=== PATIENT | male | born 1945 | race Two or more races ===

== ENCOUNTER 2020-08-13 06:42 | Inpatient (IN) | payer OTHER, MEDICAID ==
[~2020-08-13] VITALS: Ht 172.7 cm; Wt 99.8 kg
[2020-08-13] MEDS ORDERED: ASPirin 81 mg TAB PO ONE (07:00)
[2020-08-13] MEDS ORDERED: dilTIAZem 25 MG/5 ML VIAL IV ONE (07:00)
[2020-08-13 07:24] LABS: Basophils # (auto) 0.1 10 ^3/uL (0-0.2); Basophils % (auto) 0.4 % (0.0-2.0); Eosinophils # (auto) 0 10 ^3/uL (0-0.8); Hematocrit 48.7 % (41.0-53.0); Hemoglobin 16.5 g/dL (13.5-17.5); Lymphocytes % (auto) 8.2 % (10.0-50.0); Mean Corpuscular Hemoglobin 31.9 pg (28.0-32.0); Mean Corpuscular Hgb Conc. 33.8 g/dL (32.0-36.0); Mean Corpuscular Volume 94.2 fL (80.0-100.0); Monocytes # (auto) 1.1 10 ^3/uL (0-1.3); Monocytes % (auto) 8.4 % (0.0-12.0); Neutrophils # (auto) 10.6 10 ^3/uL (1.6-8.6); Nucleated Red Blood Cells % 0.1 %; Platelet Count (auto) 211 10^3/uL (140-450); Red Blood Cells 5.17 10^6/uL (4.5-5.90); Red Cell Distribution Width 14.9 % (11.8-14.3); White Blood Cell 12.8 10^3/uL (4.4-10.8)
[2020-08-13 07:39] LABS: Chloride 108 mmol/L (98-107); INR 1.14 (0.9-1.15); Partial Thromboplastin Time 29.6 sec (23.0-31.2); Potassium 3.6 mmol/L (3.5-5.1); Sodium 140 mmol/L (136-145)
[2020-08-13 07:48] LABS: Alanine Aminotransferase 37 U/L (16-61); Albumin 2.6 g/dL (3.4-5.0); Alkaline Phosphatase 168 U/L (45-117); Anion Gap 10 (5-15); Aspartate Aminotransferase 43 U/L (15-37); BUN/Creatinine Ratio 10.3; Bilirubin, Total 0.5 mg/dL (0.2-1.0); Blood Urea Nitrogen 12 mg/dL (7-18); Calcium 8.3 mg/dL (8.5-10.1); Carbon Dioxide 22 mmol/L (21-32); GFR African American 79 mL/min; GFR Non-African American 66 mL/min; Glucose 196 mg/dL (74-106); Total Protein 7.6 g/dL (6.4-8.2)
[2020-08-13] MEDS ORDERED: MORPHINE SULF INJ 2 MG/ML SYRINGE 1ML IV PRN ×2 (14:00)
[2020-08-13] MEDS ORDERED: HYDROcodone-ACET 5/325MG TAB PO PRN (14:00)
[2020-08-13] MEDS ORDERED: ONDANSETRON HCL 4 MG/2 ML VIAL IV PRN (14:00)
[2020-08-13] MEDS ORDERED: NITROGLYCERIN 0.4 MG SL TAB SL PRN (14:00)
[2020-08-13] MEDS ORDERED: ACETAMINOPHEN 500 MG TAB PO PRN (14:00)
[2020-08-13] MEDS ORDERED: hydrALAZINE HCL 20 MG/ML VL IV PRN (14:00)
[2020-08-13] MEDS: METOPROLOL TARTRATE 50 MG TAB PO SCH ×2 (14:31→22:10)
[2020-08-13] MEDS ORDERED: SODIUM CHLORIDE 0.9% 1,000 ML IV SCH (14:45)
[2020-08-13 16:00] LABS: CRP High Sensitivity 0.35 mg/dL (< 0.3)
[2020-08-13] MEDS ORDERED: ASPI-498 PO (16:48)
[2020-08-13] MEDS ORDERED: DONE1TAB88 PO (16:48)
[2020-08-13] MEDS ORDERED: SERT-375 PO (16:48)
[2020-08-13] MEDS ORDERED: TRAZ-181 PO (16:56)
[2020-08-13] MEDS ORDERED: NICO21DI TD (16:58)
[2020-08-13] MEDS ORDERED: NICO14DI9 TD (17:05)
[2020-08-13] MEDS: QUEtiapine FUMARATE 25 MG TAB PO SCH (21:51)
[2020-08-13] MEDS: traZODone HCL 50 MG TAB PO SCH (21:51)
[2020-08-13] MEDS: DOCUSATE SOD 100 MG CAP PO SCH (21:51)
[2020-08-13] MEDS: DONEPEZIL HYDROCHLORIDE 5 MG TAB PO SCH (21:51)
[2020-08-14 05:00] VITALS: BP 109/69
[2020-08-14 08:46] VITALS: BP 141/88
[2020-08-14 09:31] LABS: Basophils # (auto) 0.1 10 ^3/uL (0-0.2); Basophils % (auto) 1.3 % (0.0-2.0); Eosinophils # (auto) 0.1 10 ^3/uL (0-0.8); Eosinophils % (auto) 1.1 % (0.0-7.0); Hematocrit 41.9 % (41.0-53.0); Lymphocytes # (auto) 3.1 10 ^3/uL (0.4-5.4); Lymphocytes % (auto) 28.1 % (10.0-50.0); Mean Corpuscular Hemoglobin 31.8 pg (28.0-32.0); Mean Corpuscular Hgb Conc. 33.5 g/dL (32.0-36.0); Mean Corpuscular Volume 94.9 fL (80.0-100.0); Monocytes # (auto) 1.1 10 ^3/uL (0-1.3); Monocytes % (auto) 9.9 % (0.0-12.0); Neutrophils # (auto) 6.6 10 ^3/uL (1.6-8.6); Neutrophils % (auto) 59.6 % (37.0-80.0); Nucleated Red Blood Cells % 0.1 %; Platelet Count (auto) 165 10^3/uL (140-450); Red Blood Cells 4.41 10^6/uL (4.5-5.90)
[2020-08-14 09:50] LABS: Calcium 7.6 mg/dL (8.5-10.1); Potassium 3.8 mmol/L (3.5-5.1)
[2020-08-14] MEDS ORDERED: FAMOTIDINE 20 MG TAB PO SCH (10:00)
[2020-08-14 10:08] LABS: INR 1.16 (0.9-1.15)
[2020-08-14] MEDS: levoFLOXacin 500MG 100 ML IV SCH (10:09)
[2020-08-14] MEDS: DOCUSATE SOD 100 MG CAP PO SCH ×2 (10:10→22:00)
[2020-08-14] MEDS: ASPirin-EC 81 mg tab PO SCH (10:10)
[2020-08-14] MEDS: METOPROLOL TARTRATE 50 MG TAB PO SCH ×2 (10:11→22:30)
[2020-08-14] MEDS: LISINOPRIL 10 MG TAB PO SCH (10:12)
[2020-08-14 10:22] LABS: Urine Bacteria NONE SEEN /hpf (None Seen); Urine Blood Negative /uL (Negative); Urine Specific Gravity 1.013 (1.001-1.035); Urine WBC <1 /hpf (0 - 3)
[2020-08-14 13:00] VITALS: BP 138/72
[2020-08-14 16:31] VITALS: BP 139/72
[2020-08-14 22:00] VITALS: BP 131/78
[2020-08-14] MEDS: QUEtiapine FUMARATE 25 MG TAB PO SCH (22:30)
[2020-08-14] MEDS: traZODone HCL 50 MG TAB PO SCH (22:30)
[2020-08-14] MEDS: DONEPEZIL HYDROCHLORIDE 5 MG TAB PO SCH (22:30)
[2020-08-15] VITALS (9 sets, daily range): BP systolic 86–116; BP diastolic 37–65
[2020-08-15 06:48] LABS: Basophils # (auto) 0.1 10 ^3/uL (0-0.2); Basophils % (auto) 0.7 % (0.0-2.0); Eosinophils # (auto) 0.2 10 ^3/uL (0-0.8); Eosinophils % (auto) 2.3 % (0.0-7.0); Hematocrit 43.2 % (41.0-53.0); Hemoglobin 14.8 g/dL (13.5-17.5); Lymphocytes # (auto) 2.9 10 ^3/uL (0.4-5.4); Lymphocytes % (auto) 30.3 % (10.0-50.0); Mean Corpuscular Hemoglobin 32.5 pg (28.0-32.0); Mean Corpuscular Hgb Conc. 34.4 g/dL (32.0-36.0); Mean Corpuscular Volume 94.5 fL (80.0-100.0); Monocytes % (auto) 9.9 % (0.0-12.0); Neutrophils # (auto) 5.5 10 ^3/uL (1.6-8.6); Neutrophils % (auto) 56.8 % (37.0-80.0); Platelet Count (auto) 174 10^3/uL (140-450); Red Blood Cells 4.57 10^6/uL (4.5-5.90); Red Cell Distribution Width 14.9 % (11.8-14.3); White Blood Cell 9.7 10^3/uL (4.4-10.8)
[2020-08-15 07:06] LABS: Potassium 3.7 mmol/L (3.5-5.1)
[2020-08-15 07:18] LABS: Albumin 2.3 g/dL (3.4-5.0); BUN/Creatinine Ratio 12.7; Calcium 7.9 mg/dL (8.5-10.1); Total Protein 6.3 g/dL (6.4-8.2)
[2020-08-15] MEDS ORDERED: ADENOSINE 107 MG in GIVE UN-DILUTED 0 ML IV STA (08:47)
[2020-08-15] MEDS ORDERED: ADENOSINE 82 MG in GIVE UN-DILUTED 0 ML IV ONE (09:45)
[2020-08-15] MEDS: METOPROLOL TARTRATE 50 MG TAB PO SCH ×2 (10:00→21:43)
[2020-08-15] MEDS ORDERED: POTASSIUM CHL 20 Meq TABLET PO ONE (10:00)
[2020-08-15] MEDS: MAGNESIUM OXIDE 400 MG TAB PO SCH ×2 (11:36→21:43)
[2020-08-15] MEDS: DOCUSATE SOD 100 MG CAP PO SCH ×2 (11:36→21:43)
[2020-08-15] MEDS: levoFLOXacin 500MG 100 ML IV SCH (11:36)
[2020-08-15] MEDS: ASPirin-EC 81 mg tab PO SCH (11:37)
[2020-08-15] MEDS: FAMOTIDINE 20 MG TAB PO SCH (11:37)
[2020-08-15] MEDS: LISINOPRIL 10 MG TAB PO SCH (11:38)
[2020-08-15] MEDS ORDERED: SODIUM CHLORIDE 0.9% 250 ML IV ONE (14:45)
[2020-08-15] MEDS: Ensure HIGH Protein Chocolate 8oz Bottle PO SCH (18:39)
[2020-08-15] MEDS ORDERED: LORazepam 2MG/ML-1ML VIAL IV PRN (20:30)
[2020-08-15] MEDS: DONEPEZIL HYDROCHLORIDE 5 MG TAB PO SCH (21:42)
[2020-08-15] MEDS: traZODone HCL 50 MG TAB PO SCH (21:42)
[2020-08-15] MEDS: QUEtiapine FUMARATE 25 MG TAB PO SCH (21:43)
[2020-08-16 04:51] VITALS: BP 99/59
[2020-08-16 05:30] LABS: Basophils # (auto) 0.1 10 ^3/uL (0-0.2); Basophils % (auto) 1.2 % (0.0-2.0); Eosinophils # (auto) 0.2 10 ^3/uL (0-0.8); Eosinophils % (auto) 1.7 % (0.0-7.0); Hematocrit 40.9 % (41.0-53.0); Hemoglobin 14.1 g/dL (13.5-17.5); Lymphocytes # (auto) 2.2 10 ^3/uL (0.4-5.4); Lymphocytes % (auto) 24.1 % (10.0-50.0); Mean Corpuscular Hemoglobin 32.4 pg (28.0-32.0); Mean Corpuscular Hgb Conc. 34.3 g/dL (32.0-36.0); Mean Corpuscular Volume 94.5 fL (80.0-100.0); Monocytes # (auto) 1.2 10 ^3/uL (0-1.3); Monocytes % (auto) 12.6 % (0.0-12.0); Neutrophils # (auto) 5.6 10 ^3/uL (1.6-8.6); Neutrophils % (auto) 60.4 % (37.0-80.0); Nucleated Red Blood Cells % 0.1 %; Platelet Count (auto) 176 10^3/uL (140-450); Red Blood Cells 4.33 10^6/uL (4.5-5.90); Red Cell Distribution Width 14.8 % (11.8-14.3); White Blood Cell 9.2 10^3/uL (4.4-10.8)
[2020-08-16 06:51] LABS: Potassium 4.1 mmol/L (3.5-5.1)
[2020-08-16 07:00] LABS: Albumin 2.1 g/dL (3.4-5.0); BUN/Creatinine Ratio 16.5; Calcium 8.1 mg/dL (8.5-10.1)
[2020-08-16 07:03] LABS: Bilirubin, Total 0.9 mg/dL (0.2-1.0); Total Protein 5.8 g/dL (6.4-8.2)
[2020-08-16] MEDS: Ensure HIGH Protein Chocolate 8oz Bottle PO SCH ×3 (08:00→18:00)
[2020-08-16 09:00] VITALS: BP 124/63
[2020-08-16] MEDS: DOCUSATE SOD 100 MG CAP PO SCH (10:00)
[2020-08-16] MEDS: levoFLOXacin 500MG 100 ML IV SCH (10:36)
[2020-08-16] MEDS: FAMOTIDINE 20 MG TAB PO SCH (10:36)
[2020-08-16] MEDS: MAGNESIUM OXIDE 400 MG TAB PO SCH (10:36)
[2020-08-16] MEDS: METOPROLOL TARTRATE 50 MG TAB PO SCH (10:36)
[2020-08-16] MEDS: ASPirin-EC 81 mg tab PO SCH (10:36)
[2020-08-16] MEDS: LISINOPRIL 10 MG TAB PO SCH (10:37)
[2020-08-16 12:36] VITALS: BP 96/46
[2020-08-16 16:54] VITALS: BP 103/62
[2020-08-18 09:18] LABS: Folate (Folic Acid) 11.05 ng/mL (5.38-24)
== END 2020-08-16 21:30 | disposition short-term general hospital (02) | DRG 64 ==
LOC: EDSEX 06:42 → EDBD 06:42 → ER 06:42 → TELE 06:43 → TELE-CENTR 08-14 03:10
PROVIDERS: ADMIT Nurse Practitioner Acute Care; ATTEND Internal Medicine
DX: I61.9 Nontraumatic intracerebral hemorrhage, unspecified (principal); N17.0 Acute kidney failure with tubular necrosis; J44.1 Chronic obstructive pulmonary disease with (acute) exacerbation; I47.1 Supraventricular tachycardia; R65.10 Systemic inflammatory response syndrome (SIRS) of non-infectious origin without acute organ dysfunction; E44.0 Moderate protein-calorie malnutrition; D68.59 Other primary thrombophilia; I48.92 Unspecified atrial flutter; I67.1 Cerebral aneurysm, nonruptured; F03.90 Unspecified dementia, unspecified severity, without behavioral disturbance, psychotic disturbance, mood disturbance, and anxiety; I48.0 Paroxysmal atrial fibrillation; E83.51 Hypocalcemia; F17.210 Nicotine dependence, cigarettes, uncomplicated; E11.22 Type 2 diabetes mellitus with diabetic chronic kidney disease; I12.9 Hypertensive chronic kidney disease with stage 1 through stage 4 chronic kidney disease, or unspecified chronic kidney disease; N18.9 Chronic kidney disease, unspecified; I49.9 Cardiac arrhythmia, unspecified; R06.03 Acute respiratory distress; Z20.822 Contact with and (suspected) exposure to COVID-19; Z79.82 Long term (current) use of aspirin; Z68.33 Body mass index [BMI] 33.0-33.9, adult; Z86.73 Personal history of transient ischemic attack (TIA), and cerebral infarction without residual deficits
CPT/HCPCS: 36415; 70450; 71045; 78452; 80048; 80053; 80061; 81001; 82607; 82746; 83036; 83735; 83880; 84443; 84484; 85025; 85610; 85730; 86141; 87040; 87426; 93005; 93017; 93306; 96374; 97163; G0378; J0153; J1956

== ENCOUNTER 2021-03-18 09:04 | Emergency (ER) | payer OTHER, MEDICAID ==
[~2021-03-18] VITALS: Ht 185.4 cm; Wt 127.0 kg
[~2021-03-18 09:04] MED LIST: ASPI-498 PO; DONE1TAB88 PO; NICO14DI9 TD; SERT-375 PO; TRAZ-181 PO
[2021-03-18 11:06] LABS: Basophils # (auto) 0.1 10 ^3/uL (0-0.2); Basophils % (auto) 0.6 % (0.0-2.0); Eosinophils # (auto) 0 10 ^3/uL (0-0.8); Eosinophils % (auto) 0.3 % (0.0-7.0); Hematocrit 42.8 % (41.0-53.0); Hemoglobin 13.7 g/dL (13.5-17.5); Lymphocytes # (auto) 1.6 10 ^3/uL (0.4-5.4); Lymphocytes % (auto) 15.4 % (10.0-50.0); Mean Corpuscular Hemoglobin 27.7 pg (28.0-32.0); Mean Corpuscular Hgb Conc. 31.9 g/dL (32.0-36.0); Mean Corpuscular Volume 86.9 fL (80.0-100.0); Monocytes # (auto) 1.7 10 ^3/uL (0-1.3); Monocytes % (auto) 16.1 % (0.0-12.0); Neutrophils # (auto) 6.9 10 ^3/uL (1.6-8.6); Neutrophils % (auto) 67.6 % (37.0-80.0); Nucleated Red Blood Cells % 0.2 %; Red Blood Cells 4.93 10^6/uL (4.5-5.90); Red Cell Distribution Width 20.4 % (11.8-14.3); White Blood Cell 10.2 10^3/uL (4.4-10.8)
[2021-03-18] MEDS ORDERED: SODIUM CHLORIDE 0.9% 500 ML IVB ONE (11:15)
[2021-03-18] MEDS ORDERED: SODIUM CHLORIDE 0.9% 1,000 ML IV ONE (11:15)
[2021-03-18 11:41] LABS: Alanine Aminotransferase 72 U/L (16-61); Alkaline Phosphatase 135 U/L (45-117); Anion Gap 12 (5-15); Aspartate Aminotransferase 271 U/L (15-37); BUN/Creatinine Ratio 12.8; Blood Urea Nitrogen 20 mg/dL (7-18); Calcium 7.5 mg/dL (8.5-10.1); Carbon Dioxide 19 mmol/L (21-32); Chloride 106 mmol/L (98-107); GFR African American 56 mL/min; GFR Non-African American 46 mL/min; Glucose 83 mg/dL (74-106); Potassium 4.9 mmol/L (3.5-5.1); Sodium 137 mmol/L (136-145); Total Protein 6.6 g/dL (6.4-8.2)
[2021-03-18 11:42] LABS: Albumin 1.8 g/dL (3.4-5.0)
[2021-03-18 11:58] LABS: INR 1.64 (0.9-1.15); Partial Thromboplastin Time 44.1 sec (23.6-33.0)
[2021-03-18 12:32] LABS: Urine WBC None Seen /hpf (0 - 3)
[2021-03-18 12:40] LABS: Urine Bacteria FEW /hpf (None Seen); Urine Blood 3+ /uL (Negative); Urine Hyaline Cast FEW /lpf (0 - 2); Urine Mucus FEW (None Seen)
[2021-03-18 12:44] LABS: Urine Specific Gravity 1.005 (1.001-1.035)
[2021-03-18 12:57] LABS: Amphetamine Screen, Urine NEGATIVE (NEGATIVE); Barbiturate Scree,Urine NEGATIVE (NEGATIVE); Benzodiazephine Screen, Urine NEGATIVE (NEGATIVE); Cannabinoid Screen, Urine NEGATIVE (NEGATIVE); Cocaine Screen, Urine NEGATIVE (NEGATIVE); Opiate Scree,Urine NEGATIVE (NEGATIVE); Phencyclidine Screen, Urine NEGATIVE (NEGATIVE)
[2021-03-18] MEDS ORDERED: metroNIDAZOLE 500MG/100ML 100 ML IV ONE (15:45)
[2021-03-18 19:02] VITALS: BP 120/61
== END 2021-03-18 19:20 | disposition short-term general hospital (02) ==
LOC: EDBD 09:04 → ER 09:04
DX: F03.90 Unspecified dementia, unspecified severity, without behavioral disturbance, psychotic disturbance, mood disturbance, and anxiety (principal); F32.9 Major depressive disorder, single episode, unspecified; K52.9 Noninfective gastroenteritis and colitis, unspecified; R53.1 Weakness; R55 Syncope and collapse; E11.21 Type 2 diabetes mellitus with diabetic nephropathy; R31.9 Hematuria, unspecified; I48.91 Unspecified atrial fibrillation; R74.8 Abnormal levels of other serum enzymes; E43 Unspecified severe protein-calorie malnutrition; I10 Essential (primary) hypertension; F17.210 Nicotine dependence, cigarettes, uncomplicated; Z68.36 Body mass index [BMI] 36.0-36.9, adult; Z86.73 Personal history of transient ischemic attack (TIA), and cerebral infarction without residual deficits; Z20.822 Contact with and (suspected) exposure to COVID-19
CPT/HCPCS: 36415; 70450; 71045; 80053; 80307; 81001; 83735; 84443; 84484; 85025; 85379; 85610; 85730; 87426; 93005; 96361; 96365; 96366; 99285; J3490; J7030; J7040

== ENCOUNTER 2021-07-04 12:57 | Inpatient (IN) | payer OTHER, MEDICAID ==
[~2021-07-04] VITALS: Ht 175.3 cm; Wt 90.5 kg
[2021-07-04] MEDS ORDERED: ACETAMINOPHEN 325 MG TAB PO ONE (13:30)
[2021-07-04] MEDS ORDERED: LACTATED RINGER'S 1,000 ML IV ONE (13:30)
[2021-07-04] MEDS ORDERED: DexAMETHasone SOD PHOS 10MG/1ML VIAL INJ IV ONE (13:30)
[2021-07-04] MEDS ORDERED: ACETAMINOPHEN 650 MG RECT SUPP PR ONE (16:00)
[2021-07-04 16:43] LABS: Eosinophils # (auto) 0 10 ^3/uL (0-0.8); Eosinophils % (auto) 0.1 % (0.0-7.0); Mean Corpuscular Hemoglobin 27.5 pg (28.0-32.0); Monocytes # (auto) 1.1 10 ^3/uL (0-1.3); Monocytes % (auto) 13.9 % (0.0-12.0); Nucleated Red Blood Cells % 0.1 %
[2021-07-04 16:45] LABS: Basophils # (auto) 0 10 ^3/uL (0-0.2); Basophils % (auto) 0.5 % (0.0-2.0); Hematocrit 37.6 % (41.0-53.0); Lymphocytes % (auto) 13.6 % (10.0-50.0); Mean Corpuscular Volume 85.9 fL (80.0-100.0); Neutrophils # (auto) 5.5 10 ^3/uL (1.6-8.6); Neutrophils % (auto) 71.9 % (37.0-80.0); Red Blood Cells 4.38 10^6/uL (4.5-5.90); White Blood Cell 7.7 10^3/uL (4.4-10.8)
[2021-07-04 16:46] LABS: Red Cell Distribution Width 21.8 % (11.8-14.3)
[2021-07-04 16:50] LABS: Urine Bacteria NONE SEEN /hpf (None Seen); Urine Blood 1+ /uL (Negative); Urine Hyaline Cast FEW /lpf (0 - 2); Urine Mucus FEW (None Seen); Urine Specific Gravity 1.035 (1.001-1.035); Urine WBC 4 /hpf (0 - 3)
[2021-07-04 17:03] LABS: Albumin 1.7 g/dL (3.4-5.0); Calcium 7.3 mg/dL (8.5-10.1); Magnesium 2.6 mg/dL (1.6-2.6); Potassium 4.1 mmol/L (3.5-5.1)
[2021-07-04 17:19] LABS: BUN/Creatinine Ratio 11.2; Bilirubin, Total 1.2 mg/dL (0.2-1.0)
[2021-07-04 17:28] LABS: CRP High Sensitivity 5.47 mg/dL (< 0.3)
[2021-07-04] MEDS ORDERED: cefTRIAXone 1GM/50ML D5W 50 ML IV ONE (19:15)
[2021-07-04] MEDS ORDERED: FUROSEMIDE 20 MG/2 ML VIAL IV ONE (22:30)
[2021-07-04] MEDS ORDERED: ACETAMINOPHEN 500 MG TAB PO PRN (22:30)
[2021-07-04] MEDS ORDERED: DOCUSATE SOD 100 MG CAP PO PRN (22:30)
[2021-07-04] MEDS ORDERED: HYDROcodone-ACET 5/325MG TAB PO PRN (22:30)
[2021-07-04] MEDS ORDERED: ALBUMIN 25% 100 ML IV ONE (22:30)
[2021-07-04] MEDS ORDERED: ONDANSETRON HCL 4 MG/2 ML VIAL IV PRN (22:30)
[2021-07-04] MEDS: SODIUM CHLORIDE 0.9% 1,000 ML IV SCH (23:00)
[2021-07-04] MEDS: AZITHROMYCIN 500MG/ 250ML 250 ML IV SCH (23:15)
[2021-07-05] VITALS (7 sets, daily range): BP systolic 90–140; BP diastolic 45–96
[2021-07-05] MEDS ORDERED: NITROGLYCERIN 0.4 MG SL TAB SL PRN
[2021-07-05] MEDS ORDERED: MORPHINE SULFATE INJECTION 2 MG/ML SYRG IV PRN
[2021-07-05] MEDS: BUDESONIDE (INHALATION) 180 MCG IH IN SCH ×2 (06:09→18:54)
[2021-07-05] MEDS: ALBUTEROL SULF HFA 90MCG INH 200DOSE IN PRN ×2 (06:09→18:54)
[2021-07-05] MEDS ORDERED: DABI150C5 PO (06:50)
[2021-07-05] MEDS ORDERED: [UNRECOGNIZED DRUG - CODE] PO (06:50)
[2021-07-05] MEDS ORDERED: MEGE40TA4 PO (06:50)
[2021-07-05] MEDS ORDERED: ATOR40TA52 PO (06:50)
[2021-07-05 07:54] LABS: Basophils # (auto) 0 10 ^3/uL (0-0.2); Basophils % (auto) 0.3 % (0.0-2.0); Eosinophils # (auto) 0 10 ^3/uL (0-0.8); Monocytes # (auto) 0.5 10 ^3/uL (0-1.3); Neutrophils # (auto) 6.7 10 ^3/uL (1.6-8.6); White Blood Cell 7.9 10^3/uL (4.4-10.8)
[2021-07-05 07:56] LABS: Hematocrit 37.2 % (41.0-53.0); Hemoglobin 12.2 g/dL (13.5-17.5); Lymphocytes # (auto) 0.7 10 ^3/uL (0.4-5.4); Lymphocytes % (auto) 8.8 % (10.0-50.0); Mean Corpuscular Hgb Conc. 32.9 g/dL (32.0-36.0); Monocytes % (auto) 6.4 % (0.0-12.0); Neutrophils % (auto) 84.5 % (37.0-80.0); Nucleated Red Blood Cells % 0.1 %; Red Blood Cells 4.37 10^6/uL (4.5-5.90)
[2021-07-05 08:11] LABS: Potassium 3.6 mmol/L (3.5-5.1)
[2021-07-05] MEDS: cefTRIAXone 1GM/50ML D5W 50 ML IV SCH (08:12)
[2021-07-05] MEDS: MULTIPLE VITAMIN TAB PO SCH (08:13)
[2021-07-05] MEDS: ASCORBIC ACID 1,000 MG TAB PO SCH (08:13)
[2021-07-05] MEDS: CHOLECALCIFEROL (VITD3) 2,000 UNIT CAP/TAB PO SCH (08:13)
[2021-07-05] MEDS: DexAMETHasone SOD PHOS 10MG/1ML VIAL INJ IV SCH (08:13)
[2021-07-05] MEDS: ZINC SULFATE 220mg CAP or TAB PO SCH (08:13)
[2021-07-05] MEDS: FAMOTIDINE (10MG/ML) 2ML VL IV SCH ×2 (08:13→21:45)
[2021-07-05] MEDS: ENOXAPARIN SOD 40 MG/0.4 ML SYRINGE SC SCH (08:14)
[2021-07-05 08:21] LABS: Albumin 2.2 g/dL (3.4-5.0); BUN/Creatinine Ratio 12.7; Bilirubin, Total 1.1 mg/dL (0.2-1.0); Calcium 7.5 mg/dL (8.5-10.1); Magnesium 3.1 mg/dL (1.6-2.6); Total Protein 6.5 g/dL (6.4-8.2)
[2021-07-05] MEDS: FUROSEMIDE 20 MG/2 ML VIAL IV SCH (09:01)
[2021-07-05] MEDS: SODIUM CHLORIDE 0.9% 1,000 ML IV SCH (15:10)
[2021-07-05] MEDS: AZITHROMYCIN 500MG/ 250ML 250 ML IV SCH (23:08)
[2021-07-06] MEDS: SODIUM CHLORIDE 0.9% 1,000 ML IV SCH (04:17)
[2021-07-06 05:23] VITALS: BP 124/55
[2021-07-06 09:00] VITALS: BP 145/80
[2021-07-06] MEDS: MULTIPLE VITAMIN TAB PO SCH (10:00)
[2021-07-06] MEDS: ZINC SULFATE 220mg CAP or TAB PO SCH (10:00)
[2021-07-06] MEDS: ASCORBIC ACID 1,000 MG TAB PO SCH (10:00)
[2021-07-06] MEDS: ENOXAPARIN SOD 40 MG/0.4 ML SYRINGE SC SCH (10:00)
[2021-07-06] MEDS: BUDESONIDE (INHALATION) 180 MCG IH IN SCH ×2 (10:00→22:00)
[2021-07-06] MEDS: CHOLECALCIFEROL (VITD3) 2,000 UNIT CAP/TAB PO SCH (10:00)
[2021-07-06] MEDS: ALBUTEROL SULF HFA 90MCG INH 200DOSE IN PRN ×2 (10:01→23:06)
[2021-07-06] MEDS: DexAMETHasone SOD PHOS 10MG/1ML VIAL INJ IV SCH (10:01)
[2021-07-06] MEDS: FAMOTIDINE (10MG/ML) 2ML VL IV SCH ×2 (10:02→22:00)
[2021-07-06] MEDS: FUROSEMIDE 20 MG/2 ML VIAL IV SCH (10:02)
[2021-07-06] MEDS: cefTRIAXone 1GM/50ML D5W 50 ML IV SCH (10:04)
[2021-07-06 13:52] VITALS: BP 104/38
[2021-07-06 17:00] VITALS: BP 116/47
[2021-07-06] MEDS ORDERED: HALOPERIDOL LACTATE 5 MG/ML INJ VIAL IM PRN (21:30)
[2021-07-06] MEDS: AZITHROMYCIN 500MG/ 250ML 250 ML IV SCH (23:00)
[2021-07-07] MEDS: SODIUM CHLORIDE 0.9% 1,000 ML IV SCH ×2 (00:30→17:10)
[2021-07-07 06:00] VITALS: BP 150/66
[2021-07-07] MEDS: ALBUTEROL SULF HFA 90MCG INH 200DOSE IN PRN ×2 (07:46→20:22)
[2021-07-07] MEDS: BUDESONIDE (INHALATION) 180 MCG IH IN SCH ×2 (07:46→19:05)
[2021-07-07] MEDS: FAMOTIDINE (10MG/ML) 2ML VL IV SCH ×2 (08:45→21:12)
[2021-07-07] MEDS: ZINC SULFATE 220mg CAP or TAB PO SCH (08:45)
[2021-07-07] MEDS: ENOXAPARIN SOD 40 MG/0.4 ML SYRINGE SC SCH (08:46)
[2021-07-07] MEDS: CHOLECALCIFEROL (VITD3) 2,000 UNIT CAP/TAB PO SCH (08:46)
[2021-07-07] MEDS: MULTIPLE VITAMIN TAB PO SCH (08:46)
[2021-07-07] MEDS: ASCORBIC ACID 1,000 MG TAB PO SCH (08:46)
[2021-07-07 09:00] VITALS: BP 104/58
[2021-07-07] MEDS: cefTRIAXone 1GM/50ML D5W 50 ML IV SCH (12:58)
[2021-07-07] MEDS: DexAMETHasone SOD PHOS 10MG/1ML VIAL INJ IV SCH (12:58)
[2021-07-07] MEDS: FUROSEMIDE 20 MG/2 ML VIAL IV SCH (12:59)
[2021-07-07] MEDS: Ensure HIGH Protein Chocolate 8oz Bottle PO SCH (18:00)
[2021-07-07 18:51] VITALS: BP 125/89
[2021-07-07] MEDS: ATORVASTATIN 20 MG TAB PO SCH (21:12)
[2021-07-07] MEDS: AZITHROMYCIN 500MG/ 250ML 250 ML IV SCH (21:13)
[2021-07-07 22:00] VITALS: BP 118/51
[2021-07-08] VITALS (10 sets, daily range): BP systolic 88–123; BP diastolic 42–87
[2021-07-08] MEDS: ALBUTEROL SULF HFA 90MCG INH 200DOSE IN PRN ×2 (09:46→19:06)
[2021-07-08] MEDS: BUDESONIDE (INHALATION) 180 MCG IH IN SCH ×2 (09:46→19:06)
[2021-07-08] MEDS: ASCORBIC ACID 1,000 MG TAB PO SCH (09:47)
[2021-07-08] MEDS: MULTIPLE VITAMIN TAB PO SCH (09:47)
[2021-07-08] MEDS: ZINC SULFATE 220mg CAP or TAB PO SCH (09:48)
[2021-07-08] MEDS: DexAMETHasone SOD PHOS 10MG/1ML VIAL INJ IV SCH (09:48)
[2021-07-08] MEDS: FUROSEMIDE 20 MG/2 ML VIAL IV SCH (09:50)
[2021-07-08] MEDS: CHOLECALCIFEROL (VITD3) 2,000 UNIT CAP/TAB PO SCH (09:50)
[2021-07-08] MEDS: cefTRIAXone 1GM/50ML D5W 50 ML IV SCH (09:51)
[2021-07-08] MEDS: Ensure HIGH Protein Chocolate 8oz Bottle PO SCH ×2 (09:51→18:06)
[2021-07-08] MEDS: FAMOTIDINE (10MG/ML) 2ML VL IV SCH ×2 (09:51→22:10)
[2021-07-08] MEDS ORDERED: ASPirin-EC 81 mg tab PO SCH (10:00)
[2021-07-08] MEDS ORDERED: AMIODARONE HCL 150 MG in D5W 5% 100 ML IV ONE (12:30)
[2021-07-08] MEDS ORDERED: AMIODARONE 450mg/250ml AE 250 ML IV SCH ×2 (12:45→18:45)
[2021-07-08] MEDS: SODIUM CHLORIDE 0.9% 1,000 ML IV SCH (13:53)
[2021-07-08] MEDS: ATORVASTATIN 20 MG TAB PO SCH (22:11)
[2021-07-08 22:54] LABS: Hemoglobin 10.9 g/dL (13.5-17.5)
[2021-07-08 22:59] LABS: Hematocrit 32.1 % (41.0-53.0); Mean Corpuscular Hemoglobin 28.8 pg (28.0-32.0); Mean Corpuscular Hgb Conc. 33.9 g/dL (32.0-36.0); Mean Corpuscular Volume 85.2 fL (80.0-100.0); Red Blood Cells 3.77 10^6/uL (4.5-5.90); White Blood Cell 6.6 10^3/uL (4.4-10.8)
[2021-07-08 23:06] LABS: Red Cell Distribution Width 22.5 % (11.8-14.3)
[2021-07-08 23:08] LABS: Basophils % (manual) 0 (0.0-2.0); Blast Cells 0; Eosinophils % (manual) 0 (0-7); Metamyelocytes % 0; Promyelocytes % 0; Reactive Lymphocytes 0
[2021-07-08 23:19] LABS: Albumin 1.6 g/dL (3.4-5.0); Anion Gap 5 (5-15); Blood Urea Nitrogen 28 mg/dL (7-18); Calcium 7.3 mg/dL (8.5-10.1); Carbon Dioxide 26 mmol/L (21-32); Chloride 110 mmol/L (98-107); Glucose 120 mg/dL (74-106); Magnesium 2.4 mg/dL (1.6-2.6); Potassium 3.5 mmol/L (3.5-5.1); Sodium 141 mmol/L (136-145)
[2021-07-08 23:25] LABS: Alanine Aminotransferase 56 U/L (16-61); Alkaline Phosphatase 96 U/L (45-117); Aspartate Aminotransferase 194 U/L (15-37); BUN/Creatinine Ratio 31.8; Bilirubin, Total 1.2 mg/dL (0.2-1.0); Cholesterol < 50 mg/dL (< 200); GFR African American 109 mL/min; GFR Non-African American 90 mL/min; HDL Cholesterol 15 mg/dL (40-59); LDL Cholesterol 26 mg/dL (< 100); Phosphorus 2.4 mg/dL (2.5-4.90); Total Protein 5.2 g/dL (6.4-8.2); Triglycerides 79 mg/dL (< 150)
[2021-07-09] MEDS: AZITHROMYCIN 500MG/ 250ML 250 ML IV SCH (01:24)
[2021-07-09 01:59] LABS: Band Neutrophils % (manual) 24; Lymphocytes % (manual) 7 (10.0-50.0); Monocytes % (manual) 5 (0-12); Myelocytes % 1
[2021-07-09 05:00] VITALS: BP 96/47
[2021-07-09] MEDS: Ensure HIGH Protein Chocolate 8oz Bottle PO SCH ×2 (08:16→18:00)
[2021-07-09 09:19] VITALS: BP 140/61
[2021-07-09] MEDS: BUDESONIDE (INHALATION) 180 MCG IH IN SCH ×2 (09:39→21:11)
[2021-07-09] MEDS: DexAMETHasone SOD PHOS 10MG/1ML VIAL INJ IV SCH (10:05)
[2021-07-09] MEDS: FUROSEMIDE 20 MG/2 ML VIAL IV SCH (10:07)
[2021-07-09] MEDS: MULTIPLE VITAMIN TAB PO SCH (10:08)
[2021-07-09] MEDS: ZINC SULFATE 220mg CAP or TAB PO SCH (10:08)
[2021-07-09] MEDS: CHOLECALCIFEROL (VITD3) 2,000 UNIT CAP/TAB PO SCH (10:08)
[2021-07-09] MEDS: FAMOTIDINE (10MG/ML) 2ML VL IV SCH ×2 (10:08→22:05)
[2021-07-09] MEDS: ASCORBIC ACID 1,000 MG TAB PO SCH (10:08)
[2021-07-09] MEDS: AMIODARONE HCL 200 MG TAB PO SCH ×2 (10:08→22:05)
[2021-07-09 12:30] VITALS: BP 136/62
[2021-07-09] MEDS: cefTRIAXone 1GM/50ML D5W 50 ML IV SCH (16:07)
[2021-07-09 16:30] VITALS: BP 138/69
[2021-07-09] MEDS: ALBUTEROL SULF HFA 90MCG INH 200DOSE IN PRN (21:11)
[2021-07-09] MEDS: ATORVASTATIN 20 MG TAB PO SCH (22:06)
[2021-07-09 22:40] VITALS: BP 101/62
[2021-07-10 05:29] VITALS: BP 132/82
[2021-07-10] MEDS: ALBUTEROL SULF HFA 90MCG INH 200DOSE IN PRN ×2 (06:10→19:59)
[2021-07-10] MEDS: BUDESONIDE (INHALATION) 180 MCG IH IN SCH ×2 (06:10→19:58)
[2021-07-10] MEDS: Ensure HIGH Protein Chocolate 8oz Bottle PO SCH ×2 (08:00→18:46)
[2021-07-10] MEDS: cefTRIAXone 1GM/50ML D5W 50 ML IV SCH (09:00)
[2021-07-10 09:56] VITALS: BP 128/63
[2021-07-10] MEDS: FAMOTIDINE (10MG/ML) 2ML VL IV SCH ×2 (10:00→21:42)
[2021-07-10] MEDS: ZINC SULFATE 220mg CAP or TAB PO SCH (10:00)
[2021-07-10] MEDS: FUROSEMIDE 20 MG/2 ML VIAL IV SCH (10:00)
[2021-07-10] MEDS: MULTIPLE VITAMIN TAB PO SCH (10:00)
[2021-07-10] MEDS: DexAMETHasone SOD PHOS 10MG/1ML VIAL INJ IV SCH (10:00)
[2021-07-10] MEDS: AMIODARONE HCL 200 MG TAB PO SCH ×2 (10:00→21:43)
[2021-07-10] MEDS: ASCORBIC ACID 1,000 MG TAB PO SCH (10:00)
[2021-07-10] MEDS: CHOLECALCIFEROL (VITD3) 2,000 UNIT CAP/TAB PO SCH (10:00)
[2021-07-10 13:00] VITALS: BP 124/66
[2021-07-10 16:40] VITALS: BP 120/74
[2021-07-10] MEDS: ATORVASTATIN 20 MG TAB PO SCH (21:44)
[2021-07-10 22:00] VITALS: BP 106/55
[2021-07-11 05:00] VITALS: BP 125/69
[2021-07-11 08:00] VITALS: BP 121/59
[2021-07-11] MEDS: Ensure HIGH Protein Chocolate 8oz Bottle PO SCH ×2 (08:00→18:00)
[2021-07-11] MEDS: cefTRIAXone 1GM/50ML D5W 50 ML IV SCH (09:00)
[2021-07-11] MEDS: BUDESONIDE (INHALATION) 180 MCG IH IN SCH (09:04)
[2021-07-11] MEDS: ALBUTEROL SULF HFA 90MCG INH 200DOSE IN PRN (09:04)
[2021-07-11] MEDS: FUROSEMIDE 20 MG/2 ML VIAL IV SCH (10:00)
[2021-07-11] MEDS: ZINC SULFATE 220mg CAP or TAB PO SCH (10:00)
[2021-07-11] MEDS: AMIODARONE HCL 200 MG TAB PO SCH ×2 (10:00→22:08)
[2021-07-11] MEDS: CHOLECALCIFEROL (VITD3) 2,000 UNIT CAP/TAB PO SCH (10:00)
[2021-07-11] MEDS: FAMOTIDINE (10MG/ML) 2ML VL IV SCH ×2 (10:00→22:08)
[2021-07-11] MEDS: ASCORBIC ACID 1,000 MG TAB PO SCH (10:00)
[2021-07-11] MEDS: DexAMETHasone SOD PHOS 10MG/1ML VIAL INJ IV SCH (10:00)
[2021-07-11] MEDS: MULTIPLE VITAMIN TAB PO SCH (10:00)
[2021-07-11] MEDS: ENOXAPARIN SOD 40 MG/0.4 ML SYRINGE SC SCH (10:00)
[2021-07-11 12:00] VITALS: BP 112/73
[2021-07-11 16:00] VITALS: BP 121/63
[2021-07-11 22:00] VITALS: BP 117/50
[2021-07-11] MEDS: ATORVASTATIN 20 MG TAB PO SCH (22:08)
[2021-07-12 05:00] VITALS: BP 130/79
[2021-07-12 08:00] VITALS: BP 140/62
[2021-07-12] MEDS: ALBUTEROL SULF HFA 90MCG INH 200DOSE IN PRN ×2 (08:00→19:50)
[2021-07-12] MEDS: BUDESONIDE (INHALATION) 180 MCG IH IN SCH ×2 (08:00→19:50)
[2021-07-12] MEDS: Ensure HIGH Protein Chocolate 8oz Bottle PO SCH ×2 (08:00→18:00)
[2021-07-12] MEDS: cefTRIAXone 1GM/50ML D5W 50 ML IV SCH (09:00)
[2021-07-12] MEDS: ASCORBIC ACID 1,000 MG TAB PO SCH (10:00)
[2021-07-12] MEDS: DexAMETHasone SOD PHOS 4 MG/1ML SDV INJ IV SCH (10:00)
[2021-07-12] MEDS: ZINC SULFATE 220mg CAP or TAB PO SCH (10:00)
[2021-07-12] MEDS: FUROSEMIDE 20 MG/2 ML VIAL IV SCH (10:00)
[2021-07-12] MEDS: AMIODARONE HCL 200 MG TAB PO SCH ×2 (10:00→22:23)
[2021-07-12] MEDS: FAMOTIDINE (10MG/ML) 2ML VL IV SCH ×2 (10:00→22:23)
[2021-07-12] MEDS: MULTIPLE VITAMIN TAB PO SCH (10:00)
[2021-07-12] MEDS: CHOLECALCIFEROL (VITD3) 2,000 UNIT CAP/TAB PO SCH (10:00)
[2021-07-12] MEDS: ENOXAPARIN SOD 40 MG/0.4 ML SYRINGE SC SCH (10:00)
[2021-07-12 12:00] VITALS: BP 120/76
[2021-07-12 12:22] LABS: Basophils # (auto) 0 10 ^3/uL (0-0.2); Basophils % (auto) 0.1 % (0.0-2.0); Eosinophils # (auto) 0 10 ^3/uL (0-0.8); Hematocrit 39.2 % (41.0-53.0); Hemoglobin 13.3 g/dL (13.5-17.5); Lymphocytes # (auto) 0.5 10 ^3/uL (0.4-5.4); Lymphocytes % (auto) 3.7 % (10.0-50.0); Mean Corpuscular Hemoglobin 31.2 pg (28.0-32.0); Mean Corpuscular Hgb Conc. 33.8 g/dL (32.0-36.0); Mean Corpuscular Volume 92.1 fL (80.0-100.0); Monocytes # (auto) 1.1 10 ^3/uL (0-1.3); Monocytes % (auto) 7.5 % (0.0-12.0); Neutrophils # (auto) 12.9 10 ^3/uL (1.6-8.6); Neutrophils % (auto) 88.7 % (37.0-80.0); Nucleated Red Blood Cells % 0.3 %; Red Blood Cells 4.26 10^6/uL (4.5-5.90); Red Cell Distribution Width 23.1 % (11.8-14.3); White Blood Cell 14.5 10^3/uL (4.4-10.8)
[2021-07-12 12:44] LABS: Calcium 7.7 mg/dL (8.5-10.1)
[2021-07-12 13:29] LABS: BUN/Creatinine Ratio 32.9; Bilirubin, Direct 0.6 mg/dL (0-0.2); Total Protein 6.5 g/dL (6.4-8.2)
[2021-07-12 13:36] LABS: Potassium 2.9 mmol/L (3.5-5.1)
[2021-07-12] MEDS: POTASSIUM CHL 20MEQ/50ML 50 ML IV SCH ×4 (13:45→22:23)
[2021-07-12 16:00] VITALS: BP 112/61
[2021-07-12 22:00] VITALS: BP 123/66
[2021-07-12] MEDS: ATORVASTATIN 20 MG TAB PO SCH (22:23)
[2021-07-13] MEDS: POTASSIUM CHL 20MEQ/50ML 50 ML IV SCH (01:05)
[2021-07-13 05:00] VITALS: BP 117/58
[2021-07-13] MEDS: Ensure HIGH Protein Chocolate 8oz Bottle PO SCH ×2 (08:00→18:15)
[2021-07-13] MEDS: ALBUTEROL SULF HFA 90MCG INH 200DOSE IN PRN ×2 (09:36→19:59)
[2021-07-13] MEDS: BUDESONIDE (INHALATION) 180 MCG IH IN SCH ×2 (09:36→19:59)
[2021-07-13] MEDS: cefTRIAXone 1GM/50ML D5W 50 ML IV SCH (09:46)
[2021-07-13] MEDS: CHOLECALCIFEROL (VITD3) 2,000 UNIT CAP/TAB PO SCH (09:47)
[2021-07-13] MEDS: MULTIPLE VITAMIN TAB PO SCH (09:48)
[2021-07-13] MEDS: ZINC SULFATE 220mg CAP or TAB PO SCH (09:48)
[2021-07-13] MEDS: AMIODARONE HCL 200 MG TAB PO SCH ×2 (09:48→21:15)
[2021-07-13] MEDS: ENOXAPARIN SOD 40 MG/0.4 ML SYRINGE SC SCH (09:49)
[2021-07-13] MEDS: ASCORBIC ACID 1,000 MG TAB PO SCH (09:49)
[2021-07-13] MEDS: DexAMETHasone SOD PHOS 4 MG/1ML SDV INJ IV SCH (09:50)
[2021-07-13] MEDS: FUROSEMIDE 20 MG/2 ML VIAL IV SCH (09:50)
[2021-07-13] MEDS: FAMOTIDINE (10MG/ML) 2ML VL IV SCH ×2 (09:50→21:14)
[2021-07-13 14:09] LABS: Hepatitis B Surface Antibody Negative (Negative)
[2021-07-13 14:45] LABS: Hepatitis A Total Antibody Negative (Negative)
[2021-07-13 15:34] LABS: Hepatitis A Ab IgM Negative; Hepatitis B Core IgM Negative
[2021-07-13 15:37] LABS: Hepatitis C Antibody Positive (Negative)
[2021-07-13 19:36] LABS: Hematocrit 39.4 % (41.0-53.0); Mean Corpuscular Hgb Conc. 32.9 g/dL (32.0-36.0); Red Blood Cells 4.33 10^6/uL (4.5-5.90); White Blood Cell 17.1 10^3/uL (4.4-10.8)
[2021-07-13 19:37] LABS: Red Cell Distribution Width 23.4 % (11.8-14.3)
[2021-07-13 19:38] LABS: Basophils % (manual) 0 (0.0-2.0); Blast Cells 0; Eosinophils % (manual) 0 (0-7); Myelocytes % 0; Promyelocytes % 0; Reactive Lymphocytes 0
[2021-07-13 19:59] LABS: Band Neutrophils % (manual) 6; Lymphocytes % (manual) 2 (10.0-50.0); Metamyelocytes % 1; Monocytes % (manual) 4 (0-12)
[2021-07-13 20:01] LABS: Albumin 1.7 g/dL (3.4-5.0); Calcium 7.8 mg/dL (8.5-10.1); Magnesium 2.1 mg/dL (1.6-2.6); Potassium 4.2 mmol/L (3.5-5.1)
[2021-07-13 20:10] LABS: BUN/Creatinine Ratio 40.3; Bilirubin, Total 0.9 mg/dL (0.2-1.0); CRP High Sensitivity 1.2 mg/dL (< 0.3); Phosphorus 2.6 mg/dL (2.5-4.90)
[2021-07-13] MEDS: ATORVASTATIN 20 MG TAB PO SCH (21:15)
[2021-07-13 22:00] VITALS: BP 143/87
[2021-07-14 05:30] VITALS: BP 114/73
[2021-07-14] MEDS: ALBUTEROL SULF HFA 90MCG INH 200DOSE IN PRN ×2 (05:54→20:47)
[2021-07-14] MEDS: BUDESONIDE (INHALATION) 180 MCG IH IN SCH ×2 (05:54→19:11)
[2021-07-14] MEDS: Ensure HIGH Protein Chocolate 8oz Bottle PO SCH ×2 (08:00→18:22)
[2021-07-14] MEDS: cefTRIAXone 1GM/50ML D5W 50 ML IV SCH (08:47)
[2021-07-14] MEDS: FAMOTIDINE (10MG/ML) 2ML VL IV SCH ×2 (08:47→22:29)
[2021-07-14] MEDS: DexAMETHasone SOD PHOS 4 MG/1ML SDV INJ IV SCH (08:47)
[2021-07-14] MEDS: ASCORBIC ACID 1,000 MG TAB PO SCH (08:48)
[2021-07-14] MEDS: ENOXAPARIN SOD 40 MG/0.4 ML SYRINGE SC SCH (08:48)
[2021-07-14] MEDS: MULTIPLE VITAMIN TAB PO SCH (08:48)
[2021-07-14] MEDS: CHOLECALCIFEROL (VITD3) 2,000 UNIT CAP/TAB PO SCH (08:49)
[2021-07-14] MEDS: AMIODARONE HCL 200 MG TAB PO SCH ×2 (08:49→22:29)
[2021-07-14] MEDS: ZINC SULFATE 220mg CAP or TAB PO SCH (08:49)
[2021-07-14] MEDS: FUROSEMIDE 20 MG/2 ML VIAL IV SCH (08:53)
[2021-07-14 09:00] VITALS: BP 95/51
[2021-07-14 13:00] VITALS: BP 101/70
[2021-07-14] MEDS: PIPERACILLIN-TAZOB 3.375GM 100 ML IV SCH ×2 (14:24→22:29)
[2021-07-14 17:09] VITALS: BP 127/73
[2021-07-14 22:00] VITALS: BP 110/72
[2021-07-14] MEDS: ATORVASTATIN 20 MG TAB PO SCH (22:30)
[2021-07-15] VITALS (9 sets, daily range): BP systolic 93–136; BP diastolic 67–99
[2021-07-15] MEDS: PIPERACILLIN-TAZOB 3.375GM 100 ML IV SCH ×3 (06:05→22:25)
[2021-07-15] MEDS: ALBUTEROL SULF HFA 90MCG INH 200DOSE IN PRN ×2 (09:11→20:43)
[2021-07-15] MEDS: BUDESONIDE (INHALATION) 180 MCG IH IN SCH ×2 (09:11→20:43)
[2021-07-15] MEDS: DexAMETHasone SOD PHOS 4 MG/1ML SDV INJ IV SCH (09:59)
[2021-07-15] MEDS: Ensure HIGH Protein Chocolate 8oz Bottle PO SCH ×2 (09:59→18:30)
[2021-07-15] MEDS: MULTIPLE VITAMIN TAB PO SCH (10:00)
[2021-07-15] MEDS: ZINC SULFATE 220mg CAP or TAB PO SCH (10:00)
[2021-07-15] MEDS: FAMOTIDINE (10MG/ML) 2ML VL IV SCH ×2 (10:00→22:25)
[2021-07-15] MEDS: ASCORBIC ACID 1,000 MG TAB PO SCH (10:00)
[2021-07-15] MEDS: FUROSEMIDE 20 MG/2 ML VIAL IV SCH (10:00)
[2021-07-15] MEDS: CHOLECALCIFEROL (VITD3) 2,000 UNIT CAP/TAB PO SCH (10:00)
[2021-07-15] MEDS: AMIODARONE HCL 200 MG TAB PO SCH ×2 (10:00→22:26)
[2021-07-15] MEDS: ENOXAPARIN SOD 40 MG/0.4 ML SYRINGE SC SCH (10:02)
[2021-07-15] MEDS ORDERED: ALBUAER3 IN (11:26)
[2021-07-15] MEDS ORDERED: AMIO200T33 PO (11:26)
[2021-07-15] MEDS ORDERED: ATOR20TA50 PO (11:26)
[2021-07-15] MEDS ORDERED: DOXY-286 PO (11:26)
[2021-07-15] MEDS ORDERED: METH4PAK PO (11:37)
[2021-07-15 14:48] LABS: Basophils # (auto) 0.1 10 ^3/uL (0-0.2); Basophils % (auto) 0.4 % (0.0-2.0); Eosinophils # (auto) 0 10 ^3/uL (0-0.8); Hematocrit 38.2 % (41.0-53.0); Hemoglobin 13.1 g/dL (13.5-17.5); Lymphocytes # (auto) 0.5 10 ^3/uL (0.4-5.4); Lymphocytes % (auto) 2.9 % (10.0-50.0); Mean Corpuscular Hemoglobin 32.1 pg (28.0-32.0); Mean Corpuscular Hgb Conc. 34.3 g/dL (32.0-36.0); Mean Corpuscular Volume 93.5 fL (80.0-100.0); Monocytes # (auto) 0.8 10 ^3/uL (0-1.3); Monocytes % (auto) 4.8 % (0.0-12.0); Neutrophils # (auto) 16.1 10 ^3/uL (1.6-8.6); Neutrophils % (auto) 91.9 % (37.0-80.0); Nucleated Red Blood Cells % 0.2 %; Red Blood Cells 4.09 10^6/uL (4.5-5.90); Red Cell Distribution Width 23.8 % (11.8-14.3); White Blood Cell 17.5 10^3/uL (4.4-10.8)
[2021-07-15 16:13] LABS: BUN/Creatinine Ratio 38.4; Calcium 7.7 mg/dL (8.5-10.1)
[2021-07-15] MEDS ORDERED: DONEPEZIL HYDROCHLORIDE 5 MG TAB PO SCH (22:00)
[2021-07-15] MEDS: ATORVASTATIN 20 MG TAB PO SCH (22:26)
== END 2021-07-15 23:27 | disposition home health service (06) | DRG 177 ==
LOC: ER 12:57 → EDBD 12:57 → TELE 23:46 → TELE-WESTW 07-05 02:49
PROVIDERS: ADMIT Nurse Practitioner Family; ATTEND Internal Medicine
PROC: 05H933Z Insertion of Infusion Device into Right Brachial Vein, Percutaneous Approach (ICD-10-PCS; principal; 2021-07-13)
PROC: B54MZZA Ultrasonography of Right Upper Extremity Veins, Guidance (ICD-10-PCS; 2021-07-13)
DX: U07.1 COVID-19 (principal); J12.82 Pneumonia due to coronavirus disease 2019; J96.01 Acute respiratory failure with hypoxia; G82.50 Quadriplegia, unspecified; G93.41 Metabolic encephalopathy; N17.9 Acute kidney failure, unspecified; J98.11 Atelectasis; G93.1 Anoxic brain damage, not elsewhere classified; I48.20 Chronic atrial fibrillation, unspecified; J44.0 Chronic obstructive pulmonary disease with (acute) lower respiratory infection; D69.6 Thrombocytopenia, unspecified; E88.09 Other disorders of plasma-protein metabolism, not elsewhere classified; F17.210 Nicotine dependence, cigarettes, uncomplicated; G30.9 Alzheimer's disease, unspecified; F02.80 Dementia in other diseases classified elsewhere, unspecified severity, without behavioral disturbance, psychotic disturbance, mood disturbance, and anxiety; I10 Essential (primary) hypertension; R47.02 Dysphasia; Z66 Do not resuscitate; Z74.01 Bed confinement status; Z79.899 Other long term (current) drug therapy; Z82.49 Family history of ischemic heart disease and other diseases of the circulatory system; Z83.3 Family history of diabetes mellitus; Z86.73 Personal history of transient ischemic attack (TIA), and cerebral infarction without residual deficits; Z90.49 Acquired absence of other specified parts of digestive tract
CPT/HCPCS: 36415; 36600; 70450; 71045; 76705; 80048; 80053; 80061; 80076; 81001; 82607; 82728; 82746; 82805; 82962; 83036; 83605; 83615; 83735; 83880; 84100; 84443; 84484; 85007; 85025; 85027; 85379; 85652; 86141; 86704; 86705; 86706; 86708; 86709; 86803; 87340; 87426; 92610; 93005; 93306; 93970; 94640; 95819; 96361; 96365; 96375; 97110; 97163; 97530; G0378; J0696; J1100; J2543; J3490; J7060; P9047